=== PATIENT | male | born 1945 | race Caucasian/White ===

== ENCOUNTER 2019-03-28 08:58 | Emergency (ER) | payer MEDICARE, OTHER ==
[~2019-03-28] VITALS: Ht 182.9 cm; Wt 79.4 kg
[2019-03-28 09:08] VITALS: BP 147/71
== END 2019-03-28 10:46 | disposition home or self-care (01) ==
LOC: ER 09:04
DX: S81.811D Laceration without foreign body, right lower leg, subsequent encounter (principal); Z88.1 Allergy status to other antibiotic agents; W26.8XXD Contact with other sharp object(s), not elsewhere classified, subsequent encounter

== ENCOUNTER 2019-07-12 09:58 | Emergency (ER) | payer MEDICARE, OTHER ==
[~2019-07-12] VITALS: Ht 182.9 cm; Wt 78.5 kg
[2019-07-12 10:11] VITALS: BP 138/72
[2019-07-12] MEDS ORDERED: DexAMETHasone SOD PHOS 10MG/1ML VIAL INJ IM ONE (10:45)
[2019-07-12] MEDS ORDERED: diphenhdrAMINE HCL 50 MG/1 ML VL IM ONE (10:45)
== END 2019-07-12 12:01 | disposition home or self-care (01) ==
LOC: ER 10:02
DX: L50.9 Urticaria, unspecified (principal); Z88.0 Allergy status to penicillin; Z88.2 Allergy status to sulfonamides; Z88.1 Allergy status to other antibiotic agents; Z88.8 Allergy status to other drugs, medicaments and biological substances
CPT/HCPCS: 96372; 99283; J1100; J1200

== ENCOUNTER 2020-02-02 12:27 | Emergency (ER) | payer MEDICARE, OTHER ==
[~2020-02-02] VITALS: Ht 185.4 cm; Wt 79.4 kg
[2020-02-02 12:44] VITALS: BP 118/73
[2020-02-02] MEDS ORDERED: LIDOCAINE 1% HCL (LOCAL ANESTH.) INJ 20ML MDV IJ ONE (14:00)
== END 2020-02-02 14:37 | disposition home or self-care (01) ==
LOC: ER 12:27 → EDBD 12:27 → ER 14:37
DX: S81.811A Laceration without foreign body, right lower leg, initial encounter (principal); Z88.0 Allergy status to penicillin; Z88.1 Allergy status to other antibiotic agents; Z88.6 Allergy status to analgesic agent; Z88.8 Allergy status to other drugs, medicaments and biological substances; W22.8XXA Striking against or struck by other objects, initial encounter; Y93.89 Activity, other specified; Y92.89 Other specified places as the place of occurrence of the external cause; Y99.8 Other external cause status
CPT/HCPCS: 12005; 73590; 99283; J2001